=== PATIENT | female | born 1975 ===

== ENCOUNTER 2017-01-05 06:36 | Inpatient (IN) | payer MEDICAID ==
[2016-12-22 08:54] VITALS: BMI 29.0
[2017-01-05] MEDS ORDERED: Propofol 10 mg/ml Inj (20 ML) ONE (07:52)
[2017-01-05] MEDS ORDERED: Rocuronium 10 mg/ml (5 ml) ONE (07:53)
[2017-01-05] MEDS ORDERED: Midazolam 2 MG/2 ML VIAL ONE (07:53)
[2017-01-05] MEDS ORDERED: Bupivacaine-Epi 0.5%-1:200,000 PF Inj ONE (08:08)
[2017-01-05] MEDS ORDERED: Sodium Chloride 0.9% 20 ML IV ONE (08:08)
[2017-01-05] MEDS ORDERED: ceFAZolin IV 2 gm in Dextrose 50 ML IVPB ONE (08:09)
[2017-01-05] MEDS ORDERED: Lactated Ringer's 1,000 ML IV ONE ×4 (08:15→10:26)
[2017-01-05] MEDS ORDERED: Morphine 4 MG/ML VIAL ONE (10:00)
[2017-01-05] MEDS ORDERED: Dexamethasone 4 mg/1 ml IVP PRN (10:07)
--- NOTE | 2017-01-05 10:15 | PCM.SURG1 ---
Surgeon's Initial Post Op Note - Surgeon's Notes Surgeon: uday nayak md Floor Care Technician: guevara logan Type of Anesthesia: General Endo, Local Pre-Operative Diagnosis: chronic pelvic pain. prolapse uterus. urinray incontinence. abnormal uterine bleeding Operative Findings: severe adhesive diseaes. s/p BTL. normal ovaries bilateral. bulky prolapse uterus. normal bladder anatomy ureters efluxing. *Detailed Operative Report. This is a 41 years old female with chronic pelvic pain. prolapse uterus, urinray incontinence, abnormal uterine bleeding, adenomyosis, adhesive disease. The patient completed an extensive preoperative workup, which included an ultrasound, as well as a pap smear and an endometrial biopsy, chemistry and hematology studies. The patient reported these symptoms and problems as debilitating, and adversely affecting her quality of life. Following a period of failed conservative management, and patient decision was made to proceed with a more invasive approach to address the above noted problems. A decision was finally made to proceed with a total robotic assisted hysterectomy, bilateral salpingectomy, and vaginal vault suspension. A detailed description of this robotic procedure was given to the patient, all risks and benefits of the surgical modality was reviewed, printed material was also given to the patient regarding robotic surgery. The patient fully understood all the risks and benefits and elected to proceed with this proposed procedure. After proper consent was obtained from the patient was taken to the operating room, proper patient identification was completed. She was placed in dorsal lithotomy position; general anesthesia was induced without difficulty. Her legs were placed in adjustable Rod stirrups. Careful attention was placed not to over-flex or over-rotate the lower extremities at the hip or the knee joints. She was prepped and draped appropriately for robotic assisted hysterectomy. Aguiar catheter was inserted under sterile conditions. A weighted speculum was placed in the vagina, anterior lip of cervix was grasped with a tenaculum, and a V-care uterine manipulator was inserted through the cervix and secured. The weighted speculum and tenaculum were removed from the patient's vagina and attention was turned to the patient' s abdomen. Local anesthetic solutions of 0.25% Marcaine with epinephrine were utilized to infiltrate the skin prior to all abdominal skin incisions. A total of 15 mL of 0.25% Marcaine was utilized throughout the procedure. While tenting the abdominal wall, a Veres needle was inserted through the umbilicus and a pneumoperitoneum was obtained. Approximately 3 cm above the umbilicus in the midline, a 1 cm incision was made with a scalpel and a trocar and sleeve were introduced. A robotic camera was inserted and an initial survey of the patient's abdomen revealed an enlarged bulky uterus, boggy in appearance. Both ovaries appeared normal with normal appearing fallopian tubes. The patient was placed in Trendelenburg position ready for a da Zeke robotic system to be docked. 3 robotic ports were utilized for this procedure. The first robotic port was placed on the patient's right side approximately 8 cm left lateral to the camera port, the second robotic port was placed 8 cm right lateral to the camera port and the third robotic port was placed approx. 8 cm lateral the second port. All ports were approx. aligned along the same horizontal line on the abdomen in an arch like fashion. An technical services assistant port was placed 8 cm left lateral to the first robotic port. For the technical services assistant and camera ports we utilized the Versa step trocar system. All trocars were inserted under direct visualization. The placement of the trocars was all accomplished under careful and meticulous placement under direct visualization. Following the placement of all trocars, the da Zeke robotic system was docked in a parallel method without difficulty. The following instruments were utilized for this procedure : the bipolar cautery device, a monopolar carla and finally a ProGrasp. Meticulous and careful lysis of adhesions as well as enterolysis was accomplished utilizing the monopolar carla and bipolar device. Prior to the start of the hysterectomy, lesions involving the pelvic sidewalls in close proximity to both ureters, exploration of the ureters and their courses was necessary. Following meticulous and careful dissection into the pelvic sidewall , both ureters were explored and visualized, peristalsis bilaterally. On the patient's right side, the utero-ovarian and the round ligaments were identified cauterized and transected, the broad ligament was divided all the way down to the utero cervical junction bladder flap was then created by transecting the visceroperitoneum over the bladder reflection. In a similar fashion, the left round ligament, utero-ovarian ligament and broad ligament were cauterized sealed and transected, taken down to the level of the cervical uterine junction. Uterine vessels on both sides were sealed and transected. The Uterosacral ligaments were sealed and transected. The monopolar carla and PK were utilized to complete the colpotomy incision around the care vaginal ring. Excellent hemostasis was noted. The uterus, cervix and fallopian tubes were delivered transvaginal through the colpotomy incision and sent to pathology for permanent analysis. The colpotomy incision was closed with 2-0 v LOC in a continuous fashion with excellent hemostasis. The vaginal vault suspension was achieved by suspending the vaginal cuff to the base of the uterosacral ligaments bilaterally. For uterosacral ligament suspension portion of the procedure, the ureters were once again identified to avoid possible compromise or kinking while suspending the vaginal vault. A 2-0 permanent suture material ( [place]) was utilized to suspend the uterosacral ligaments from the base to the vaginal vault cuff incision including both anterior and posterior aspect of the colpotomy incision. Utilizing a 3-0 Monocryl suture, the peritoneum over the colpotomy incision and uterosacral ligaments was re-approximated in a continuous fashion. The abdomen was throughout irrigated and cleared of all clots and debris. FloSeal as well as Interceed was applied to the incision sites. Excellent hemostasis was again noted. All robotic and laparoscopic instruments removed under direct visualization. The robotic arms were undocked , and a da Zeke robotic system was wheeled away from the patient's bedside. Both technical services assistant and camera ports were closed at the fascial layer utilizing a 2- 0 Vicryl suture material in interrupted fashion. Pneumoperitoneum was reduced and all skin incisions were closed utilizing 4-0 Monocryl in a subcutaneous fashion. Dermabond was applied to all incisions. Due to the complexity of this hysterectomy and colpopexy, a diagnostic cystoscopy was completed. The Aguiar catheter was removed; the bladder was distended with approximately 350 cc of normal saline. A 30 cystoscope was introduced and a survey of the bladder anatomy was completed. The base, and the dome of the bladder appeared normal, both ureteral orifices appeared normal and were efluxing urine freely. The urethra appeared normal. A Aguiar catheter was reinserted. Vaginal packing was inserted to be removed the next morning. Patient emerged from general anesthesia without difficulty, and was taken to recovery room in stable condition. Prior to incision the patient received antibiotics, prior to closure sponge lap and needle counts were correct x2. Post-Operative Diagnosis: chronic pelvic pain. prolapse uterus. urinray incontinence. abnormal uterine bleeding. adenomyosis. adhesive disease Operation Performed: total robotic hysterecotmy bilateral salpingectomy. uterosacral ligament suspenssion. STACI and cystoscopy Specimen/Specimens Removed: uterus, cervix and tubes Estimated Blood Loss: EBL {In ML}: 20 Blood Products Given: N/A Drains Used: No Drains Post-Op Condition: Good Date of Surgery/Procedure: 01/05/17 Time of Surgery/Procedure: 10:15
[2017-01-05] MEDS ORDERED: Morphine 4 MG/ML VIAL IVP PRN (10:16)
[2017-01-05] MEDS ORDERED: Trimethobenzamide 200 mg/2 mL Inj IM PRN (10:16)
[2017-01-05] MEDS: HYDROmorphone 0.5 mg/0.5 ml ISec IVP PRN ×4 (11:40→13:15)
[2017-01-05] MEDS ORDERED: HYDROmorphone 0.5 mg/0.5 ml ISec ONE (13:15)
[2017-01-05] MEDS ORDERED: Sodium Chloride 0.9% 1,000 ML IV ONE (13:45)
[2017-01-05 16:42] VITALS: RESP 20
[2017-01-05] MEDS: ceFAZolin IV 2 gm in Dextrose 50 ML IVPB SCH (18:16)
[2017-01-06] MEDS: ceFAZolin IV 2 gm in Dextrose 50 ML IVPB SCH ×2 (00:33→08:45)
[2017-01-06] MEDS: Sodium Chloride 0.9% 1,000 ML IV SCH ×2 (05:43)
[2017-01-06] MEDS ORDERED: Oxycodone/Acetaminophen 5/325 mg Tab PO PRN (07:38)
[2017-01-06 07:53] VITALS: BP 119/75; PULSE 83; TEMP 99.8; O2SAT 95
[2017-01-06 09:14] LABS: HEMATOCRIT 29.5 % (34.0-47.0); MEAN CORPUSCULAR HEMOGLOBIN 25.8 pg (27.0-31.0); MEAN CORPUSCULAR HGB CONC 32.3 g/dL (33.0-37.0); MEAN PLATELET VOLUME 8.1 fL (7.2-11.7); RED CELL DISTRIBUTION WIDTH 15.1 % (11.5-14.5); WHITE BLOOD COUNT 8.5 K/uL (4.8-10.8)
[2017-01-06 09:18] LABS: MEAN CELL VOLUME 79.9 fL (81.0-99.0)
[2017-01-06 09:24] LABS: CHLORIDE 102 mmol/L (98-107); SODIUM 139 mmol/L (132-148)
[2017-01-06 09:25] LABS: POTASSIUM 3.5 mmol/L (3.6-5.2)
[2017-01-06 09:27] LABS: CARBON DIOXIDE 25 mmol/L (22-30); GFR AFRICAN-AMERICAN > 60
[2017-01-06 09:28] LABS: BLOOD UREA NITROGEN 7 mg/dL (7-17); CALCIUM 7.5 mg/dl (8.6-10.4); GLUCOSE,RANDOM 94 mg/dL (65-105)
[2017-01-06] MEDS ORDERED: Potassium Chloride 20 mEq/15 ml LIQ UD PO ONE (10:30)
--- NOTE | 2017-01-06 17:15 | CP.PCM.DIS ---
Provider - Provider Date of Admission: 01/05/17 10:16 Attending physician: Blaise Fink MD Time Spent in preparation of Discharge (in minutes): 20 Hospital Course - Lab Results Lab Results: Most Recent Lab Values WBC 8.5 K/uL (4.8-10.8) 01/06/17 09:04 RBC 3.69 Mil/uL (3.80-5.20) L 01/06/17 09:04 Hgb 9.5 g/dL (11.0-16.0) L 01/06/17 09:04 Hct 29.5 % (34.0-47.0) L 01/06/17 09:04 MCV 79.9 fL (81.0-99.0) L D 01/06/17 09:04 MCH 25.8 pg (27.0-31.0) L 01/06/17 09:04 MCHC 32.3 g/dL (33.0-37.0) L 01/06/17 09:04 RDW 15.1 % (11.5-14.5) H 01/06/17 09:04 Plt Count 311 K/uL (130-400) 01/06/17 09:04 MPV 8.1 fL (7.2-11.7) 01/06/17 09:04 Sodium 139 mmol/L (132-148) 01/06/17 09:04 Potassium 3.5 mmol/L (3.6-5.2) L 01/06/17 09:04 Chloride 102 mmol/L (98-107) 01/06/17 09:04 Carbon Dioxide 25 mmol/L (22-30) 01/06/17 09:04 Anion Gap 15 (10-20) 01/06/17 09:04 BUN 7 mg/dL (7-17) 01/06/17 09:04 Creatinine 0.6 MG/DL (0.7-1.2) L 01/06/17 09:04 Est GFR ( Amer) > 60 01/06/17 09:04 Est GFR (Non-Af Amer) > 60 01/06/17 09:04 Random Glucose 94 mg/dL (65-105) 01/06/17 09:04 Calcium 7.5 mg/dl (8.6-10.4) L 01/06/17 09:04 Blood Type O POSITIVE 01/05/17 07:56 Antibody Screen Negative 01/05/17 07:56 - Hospital Course Hospital Course: 41F presented to [facility] for TRH with BSO and culpopexy. Did well after surgery and was able to go home the next day. Discharge Exam - Head Exam Head Exam: ATRAUMATIC, NORMOCEPHALIC - Eye Exam Eye Exam: EOMI. absent: Scleral icterus - Respiratory Exam Respiratory Exam: NORMAL BREATHING PATTERN. absent: Respiratory Distress - GI/Abdominal Exam GI & Abdominal Exam: Guarding (mild), Soft, Tenderness (mild at incision sites) . absent: Distended, Firm, Rigid - Neurological Exam Neurological exam: Alert, Oriented x3 - Skin Skin Exam: Dry, Warm Discharge Plan - Discharge Medications Prescriptions: oxyCODONE/Acetaminophen [Percocet 5/325 mg Tab] 2 tab PO Q4H PRN #20 tab PRN Reason: Pain, Moderate (4-7) - Follow Up Plan Condition: GOOD Disposition: HOME/ ROUTINE Instructions: Oxycodone/Acetaminophen (By mouth), Pain Management After Surgery (DC), Robot Assisted Laparoscopic Hysterectomy (DC), Salpingo- oophorectomy (DC) Additional Instructions: follow up w/ Dr. Fink in 2 weeks. Can shower do not bathe or soak incisions. Take Rx as prescribed. Referrals: Blaise Fink MD [Staff Provider] -
[2017-01-07] MEDS ORDERED: Influenza Virus Vaccine 45 mcg/0.5 ml Syr IM ONE (10:00)
[2017-01-07] MEDS ORDERED: Pneumococcal 23-Valent Vaccine IM ONE (10:00)
== END 2017-01-06 12:41 | disposition home or self-care (01) | DRG 358 ==
LOC: C.SDS 06:36 → C.6T 10:16
PROVIDERS: ADMIT Obstetrics & Gynecology; ATTEND Obstetrics & Gynecology
PROC: 0UT7FZZ Resection of Bilateral Fallopian Tubes, Via Natural or Artificial Opening With Percutaneous Endoscopic Assistance (ICD-10-PCS; 2017-01-05)
PROC: 0UTC7ZZ Resection of Cervix, Via Natural or Artificial Opening (ICD-10-PCS; 2017-01-05)
PROC: 0USGXZZ Reposition Vagina, External Approach (ICD-10-PCS; 2017-01-05)
PROC: 8E0W4CZ Robotic Assisted Procedure of Trunk Region, Percutaneous Endoscopic Approach (ICD-10-PCS; 2017-01-05)
PROC: 0TJB8ZZ Inspection of Bladder, Via Natural or Artificial Opening Endoscopic (ICD-10-PCS; 2017-01-05)
PROC: 3E0M05Z Introduction of Adhesion Barrier into Peritoneal Cavity, Open Approach (ICD-10-PCS; 2017-01-05)
PROC: 0UT9FZZ Resection of Uterus, Via Natural or Artificial Opening With Percutaneous Endoscopic Assistance (ICD-10-PCS; principal; 2017-01-05 07:45)
DX: N93.9 Abnormal uterine and vaginal bleeding, unspecified (principal); R32 Unspecified urinary incontinence; G89.29 Other chronic pain; N81.4 Uterovaginal prolapse, unspecified; R10.2 Pelvic and perineal pain